=== PATIENT | female | born 1975 | race Caucasian/White ===

== ENCOUNTER 2021-11-07 10:53 | Emergency (ER) | payer BC, SELFPAY ==
--- NOTE | ~2021-11-07 | XR_ITS ---
XR hand LT min 3V DATE: 11/07/2021 11:10 INDICATION: Injury. Pain and bruising at third metacarpal TECHNIQUE: 3 views COMPARISON: None FINDINGS: No fracture or dislocation, periosteal reaction or bone destruction. IMPRESSION: Negative Reviewed, dictated and finalized at location A. IMPRESSION: Negative
--- NOTE | 2021-11-07 10:58 | ED.UPPEXIN ---
HPI - Extremity Injury (Upper) General Chief Complaint: Extremity Injury, Upper Stated Complaint: left hand injury Time Seen by Provider: 11/07/21 10:58 Source: patient and RN notes reviewed History of Present Illness HPI narrative: Patient is a 46-year-old female who presents the urgent care with complaints of left hand injury. Patient states that last Tuesday she was attempting to fix her lawnmower and something came back at her left hand . 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 Patient is right-hand dominant. Patient states that it is still bothering her with making a fist. No [id number] medication was taken for pain. No other acute complaints or injuries. No acute distress noted. Patient aware of the plan of care. Some parts of this dictation were generated by voice recognition software and may contain typographical and/or grammatical inaccuracies. Related Data Home Medications Medication Instructions Recorded Confirmed venlafaxine 37.5 mg PO DAILY 11/07/21 11/07/21 Allergies Allergy/AdvReac Type Severity Reaction Status Date / Time No Known Allergies Allergy Unverified 11/07/21 11:13 Review of Systems Review of Systems: CONSTITUTIONAL: Denies fever, chills, or sweats. EYES: Denies visual changes, redness, or discharge. ENT: Denies rhinorrhea, congestion, sore throat, or otalgia. CARDIOVASCULAR: Denies chest pain, palpitations, or edema. RESPIRATORY: Denies cough or dyspnea. GASTROINTESTINAL: Denies abdominal pain, nausea, vomiting, or diarrhea. GENITOURINARY: Denies dysuria or hematuria. SKIN: Denies rash or itching. MUSCULOSKELETAL: Reports of left hand pain and mild swelling NEUROLOGIC: Denies headache, numbness, or weakness. All other systems reviewed are negative, except as documented in HPI. PMFSH Comments At the time of my signature, I reviewed and agree with the nursing past medical, surgical, social, and family history. There is no relevant family history pertinent to the patient complaint. Exam Narrative: GENERAL: This is a well-nourished, well-developed patient, in no apparent distress. HEAD: normocephalic, atraumatic. EYES: PERRL. Sclera clear/white. Vision is grossly intact. EARS: External ears normal NOSE: External nose normal with no obvious nasal discharge, nares without redness, no rhinorrhea. THROAT: Mucous membranes moist NECK: Neck supple CARDIOVASCULAR: Regular rate and rhythm without murmurs, gallops, or rubs. RESPIRATORY: Clear to auscultation. Breath sounds equal bilaterally. No wheezes, rales, or rhonchi. SKIN: warm, intact with no suspicious lesions or rash, good texture and turgor. NEURO: awake, alert, and oriented to person, place and time. There were no obvious focal neurologic abnormalities. EXTREMITIES: Mild ecchymosis and edema noted over the third left metacarpal with increased tenderness. Range of motion to left upper extremity within normal limits. Exacerbated pain on making a fist of the left. Positive strong left radial pulse with capillary refill less than 2 seconds. Course Course Level of Care: Express Care Visit Vital Signs Vital signs: Vital Signs Temperature 98.7 F 11/07/21 11:00 Pulse Rate 101 H 11/07/21 11:00 Respiratory Rate 20 11/07/21 11:00 Blood Pressure 146/73 H 11/07/21 11:00 Pulse Oximetry 98 11/07/21 11:00 Temperature 98.7 F 11/07/21 11:00 Pulse Rate 101 H 11/07/21 11:00 Respiratory Rate 20 11/07/21 11:00 Blood Pressure 146/73 H 11/07/21 11:00 Pulse Oximetry 98 11/07/21 11:00 Reviewed-patient is informed that they may have pre-hypertension or hypertension based on a blood pressure reading in the department. I recommend the patient call the primary care provider listed on their discharge instructions or a physician of their choice this week to arrange follow-up for further evaluation of possible pre-hypertension or hypertension. MDM - Extremity Injury (Upper)
[2021-11-07 11:00] VITALS: BP 146/73; PULSE 101; RESP 20; TEMP 37.1; O2SAT 98
== END 2021-11-07 11:25 | disposition home or self-care (01) ==
PROVIDERS: Emergency Provider Nurse Practitioner Family; PCP Family Medicine
DX: S60.222A Contusion of left hand, initial encounter (principal); W22.8XXA Striking against or struck by other objects, initial encounter
CPT/HCPCS: 73130; 99203; G0463

== ENCOUNTER 2025-06-26 08:13 | Emergency (ER) | payer BC, SELFPAY ==
[2025-06-26 08:21] VITALS: BP 141/73; PULSE 87; RESP 16; TEMP 36.4; O2SAT 100
--- OUTSIDE RECORDS SUMMARY | 2025-06-26 08:26 | XMS_ITS | Clinical Summary ---
Author Organization [facility] [address] [facility] Address [address] [place] [address] Care Team Providers Care Ortho Nurse Name Role Phone Uri York MD Primary Care Provider [phone] Aj Mccrary MD Unavailable [phone] Allergies Active Allergy Reactions Criticality Noted Date Comments Codeine Vomiting Low 03/21/2017 Medications midodrine (PROAMATINE) 2.5 mg tabletIndicatio ns:Symptomatic Orthostatic Hypotension Take 1 tablet (2.5 mg total) by mouth daily 90 tablet 3 4 Active ezetimibe (ZETIA) 10 mg tablet Take 1 tablet (10 mg total) by mouth daily 90 tablet 4 5 11/01/19 26 Active venlafaxine XR (EFFEXOR-XR) 37.5 mg 24 hr capsuleIndicati ons:Major depressive disorder, recurrent, moderate (HCC) TAKE 1 CAPSULE(37 .5 MG) BY MOUTH DAILY 90 capsule 4 5 Active calcium carbonate-vitam in D3 2,500 mg (1,000 mg elemental)-800 unit tablet Take by mouth Active mv,Ca,min-FA-he rbal comp #223 400 mcg tablet Take by mouth Active rOPINIRole (REQUIP) 0.25 mg tablet TAKE 1 TABLET(0.2 5 MG) BY MOUTH EVERY NIGHT 30 tablet 5 5 Active armodafiniL (NUVIGIL) 250 mg tablet TAKE 1 TABLET(250 MG) BY MOUTH DAILY 30 tablet 5 5 Active armodafiniL (NUVIGIL) 250 mg tablet TAKE 1 TABLET(250 MG) BY MOUTH DAILY 30 tablet 5 5 06/25/20 25 Discontinued Active Problems Problem Noted Date Diagnosed Date Menopausal symptoms 03/28/2025 Assessment & Plan (03/28/2025 8:42 AM CDT): Experiencing weight gain, night sweats, and mood changes. Recommend black cohosh. Consider SSRIs like Prozac if symptoms persist. Vitamin D deficiency 10/31/2024 Assessment & Plan (10/31/2024 9:06 AM CDT): Continue supplement. BMI 28.0-28.9,adult 10/31/2024 Assessment & Plan (03/28/2025 8:42 AM CDT): Weight gain persists despite dietary changes and exercise, possibly related to smoking cessation and perimenopause. Continue monitoring weight. Encouragement provided. Keep up the great work with lifestyle changes! Assessment & Plan (10/31/2024 9:07 AM CDT): Continue excellent work with lifestyle changes! Mixed hyperlipidemia 07/02/2024 Assessment & Plan (03/28/2025 8:40 AM CDT): Started on ezetimibe with anticipated cholesterol improvement from dietary changes. Continue ezetimibe and monitor lipid profile. Assessment & Plan (10/31/2024 9:05 AM CDT): Mixed hyperlipidemia with previous statin intolerance. Cholesterol improved with lifestyle changes; further improvement desired. Ezetimibe considered for better tolerance. - Prescribe Ezetimibe (Zetia) for cholesterol management. - Recommend omega-3 fish oil supplementation. - Re-evaluate cholesterol levels in six months. Assessment & Plan (07/02/2024 10:00 AM GRINDER SET UP OPERATOR CENTERLESS): Reviewed atorvastatin along with scheduling and side effects. Will initiate. Will recheck lipid panel in 3-4 months on return visit. Reviewed lifestyle recommendations. Keep up the great work with the exercise! Prediabetes 07/02/2024 Assessment & Plan (03/28/2025 8:40 AM CDT): She continues dietary management with reduced red meat and increased fish intake. Continue dietary modifications. Assessment & Plan (10/31/2024 9:05 AM CDT): A1c 5.2%. Keep the great work with lifestyle changes! Assessment & Plan (07/02/2024 10:01 AM GRINDER SET UP OPERATOR CENTERLESS): Fasting glucose 109. Again reviewed lifestyle recommendations. Will check A1c upon return. Annual physical exam 03/26/2024 Assessment & Plan (03/28/2025 8:40 AM CDT): Visit preventive in nature. We reviewed medications, chronic conditions, risk factors, lifestyle recommendations. Reviewed immunization recommendations. Follow-up in 6 months for chronic conditions and 1 year for annual wellness. Assessment & Plan (03/26/2024 8:09 AM CDT): Visit preventive in nature. We reviewed medications, chronic conditions, risk factors, lifestyle recommendations. Reviewed immunization recommendations. Follow-up in 1 year for annual wellness. Screening mammogram for breast cancer 03/26/2024 Assessment & Plan (03/26/2024 8:09 AM CDT): Mammogram ordered. Will plan accordingly once results are received. Pure hypercholesterolemia 01/20/2023 Assessment & Plan (01/20/2023 10:27 AM CDT): 01/30 TC 242 TRG 135 HDL 33 LDL 182 Has increase in LDL in the past year. Patient reports she has been eating a lot of red meat, she purchased a house she and her have been eating red meat almost daily for the last year. Discussed dietary changes to improve cholesterol namely reducing red meat. Will repeat labs in 6 months. Physical exam, annual 01/20/2023 Assessment & Plan (01/20/2023 10:29 AM CDT): Preventive exam; reviewed recommended preventive screenings and vaccinations. Encourage annual flu vaccine. Wear sunscreen/protective clothing when outdoors. -cologuard ordered -repeat mammogram due 03/2023 -encouraged to follow up with [facility]FORMATION [facility]ELOPER. Encounter for colorectal cancer screening 2022 Assessment & Plan (01/20/2023 10:29 AM CDT): Discussed colorectal cancer screening guidelines. No family history of colon cancers. Declines screening with colonoscopy; aware that it is gold standard for CRC screening. Patient is agreeable to cologuard. Aware that kit will be mailed with directions and to call office if not received in 2 weeks. To call office if no results received within 2 weeks of test submission. Contusion of left hand 08/09/2022 Major depressive disorder, recurrent, mild 06/26 Assessment & Plan (03/26/2024 8:08 AM CDT): Reports well controlled on venlafaxine. Will continue. Will continue to monitor. Major depressive disorder, recurrent, moderate 1 08/27/2020 Assessment & Plan (01/20/2023 10:27 AM CDT): Stable; good response to venlafaxine 75 mg daily. No changes made today. Major depressive disorder, recurrent, unspecifie d 06/26/2021 S/P TLH 09/20/2019 Pelvic pain 08/20/2019 Overview (08/20/2019): Added automatically from request for surgery [id number] Menorrhagia with irregular cycle 08/20/2019 Overview (08/20/2019): Added automatically from request for surgery [id number] Tobacco dependence 09/27/2017 Assessment & Plan (07/02/2024 10:00 AM GRINDER SET UP OPERATOR CENTERLESS): Keep up the great work with cutting back! Sore throat 08/10/2017 Assessment & Plan (03/19/2025 9:23 AM CDT): Rapid strep negative. Recent exposure to strep within the household. Throat culture collected and sent to the lab. we will contact patient with results Patient advise to manage symptoms with pmze-mqx-pbvmhoi medications such as, Tylenol, ibuprofen, Zyrtec, Benadryl, and Flonase nasal spray Orders: POCT rapid strep A Throat culture Throat; Future Assessment & Plan (08/10/2017 4:59 PM GRINDER SET UP OPERATOR CENTERLESS): You may gargle with warm salt water, suck on throat lozenges, or throat sprays Use a decongestant for your congestion. You can dry up your runny nose with an antihistamine Elevate your pillow at night when you are sleeping to reduce the drainage down your throat. Please follow up with your PCP if you are not getting any better Other headache syndrome 07/20/2017 Assessment & Plan (08/10/2017 4:57 PM GRINDER SET UP OPERATOR CENTERLESS): Headaches are improving with treatment. Continue current treatment regimen.Headache is improving. Pt. Getting more sleep only using Trazodone occasionally now. Pt. Ok with not doing MRI since EVANS is improving. Will continue to monitor and notify me if EVANS increases with intensity or has neuro s/s Assessment & Plan (07/20/2017 11:28 AM GRINDER SET UP OPERATOR CENTERLESS): Headaches are newly identified. Advised to keep a headache diary. NSAIDs are mainstays of acute tension type Headaches. These are medications like Motrin, Ibuprofen, Aleve, Naproxen.and even Acetaminophen (tylenol). Being in a cool dark room may help your headache. If you experience nausea with your headache, you can take nausea medication if prescribed Stick with clear liquid until nausea subsides If you have been prescribed any medications, take as directed PREVENTION is very important-Avoid triggers, reduce stress. Get plenty of sleep, exercise and eat healthy. You can also try Relaxation, deep breathing and Imagery. If you experience a headache that is out of your normal, or have vision loss, dizziness- go to ER Chronic SHILOH (middle ear effusion) 10/22/2016 Overview (12/03/2016): Left otitis media with effusion Eczema 10/22/2016 Overview (12/03/2016): Dermatitis Tobacco use 10/22/2016 Overview (12/03/2016): Tobacco use Assessment & Plan (10/31/2024 9:05 AM CDT): Congratulated on quitting! Keep up the great work! Assessment & Plan (03/26/2024 8:08 AM CDT): Precontemplative. Encouraged complete smoking cessation. Discussed different types of medications & vbec-ftx-pasckia aides to help with cessation. Assessment & Plan (01/20/2023 10:27 AM CDT): Encourage complete cessation. Assessment & Plan (07/20/2017 1:15 PM GRINDER SET UP OPERATOR CENTERLESS): Quit Smoking https://smokefree.gov/ Nicotine replacement therapy (NRT) is the most commonly used family of quit smoking medications. NRT reduces withdrawal feelings by giving you a small controlled amount of nicotine?but none of the other dangerous chemicals found in cigarettes. This small amount of nicotine helps satisfy your craving for nicotine and reduces the urge to smoke. NRT can t do all the work. It can help with withdrawal and cravings. But it won t completely take away the urge to smoke. Even if you use NRT to help you stop smoking, quitting can still be hard. Combining NRT with other strategies can improve your chances of quitting and staying quit. To give yourself the best chance for success, explore other quit methods you can combine with medication. Also think about: Developing a quit plan. Using quit programs such as SmokefreeTXT or calling a quitline. Using the TutorVista.com atul for tips and inspiration to help you be smokefree. Prepare, Reduce creavings and Triggers, Reduce stress, Get Active, Eat Healthy Gum, Patches, Inhaler, lozenges, nasal spray or medications like Wellbutrin, Chantix Remind yourself of the rewards of quitting to help yourself stay on track: 20 minutes: heart rate, blood pressure drop 12 hours: carbon monoxide in blood stream drops to normal 2 weeks-3 months: circulation, lung function improve; heart attack risk begins to drop 1-9 months: cough less, breathe easier 1 year: risk of coronary heart disease cut in half 2-5 years: risk of cancer of mouth, throat, esophagus, bladder cut in half; stroke risk is reduced to that of a nonsmoker 10 years: half as likely to from lung cancer; risk of kidney or pancreatic cancer decreases 15 years: risk of coronary heart disease same as non-smoker s risk EXTRA MONEY Cough 03/26/2016 Overview (10/16/2016): Cough Shoulder joint painful on movement 04/06/2015 Overview (10/16/2016): Shoulder joint painful on movement Encounters Date Type Department Care Team Description 05/27/2025 Telephone [place] [facility] [address] [place] [phone] Kaci Serrano NP 05/15/2025 Results [facility] [address] [phone] Shirin Ulloa NP Screening Mammogram Bilateral W Romario 05/14/2025 8:53 AM GRINDER SET UP OPERATOR CENTERLESS - 05/14/2025 11:59 PM GRINDER SET UP OPERATOR CENTERLESS Hospital Encounter [facility] [address] [place] [address] Encounter for screening mammogram for malignant neoplasm of breast Discharge Disposition: Discharge to home or self care 04/25/2025 9:00 AM CDT Office Visit [facility] [address] [place] [address] Dayo Jones MD Hypersomnia (Primary Dx); Restless legs syndrome 03/28/2025 7:30 AM CDT Office Visit [facility] [address] [phone] Shirin Ulloa NP Annual physical exam (Primary Dx); Prediabetes; Mixed hyperlipidemia; BMI 28.0-28.9,adult; Encounter for screening mammogram for malignant neoplasm of breast; Menopausal symptoms from Last 3 Months Immunizations Immunization Administration Dates Next Due Hep B Vaccine 09/03/2013,09/03/2013 Influenza, Unspecified 03/26/2024(Deferr ed: Patient Refused),03/26/2024(Deferred: Patient Refused),03/11/2023(Deferred: Patient Refused),01/20/2023(Deferred: Patient Refused),02/01/2022(Deferred: Patient Refused),04/29/2021(Deferred: Patient Refused),03/11/2021(Deferred: Patient Refused),08/12/2020(Deferred: Patient Refused),03/11/2020(Deferred: Patient Refused),07/11/2019(Deferred: Patient Refused),04/16/2019(Deferred: Patient Refused),07/11/2018(Deferred: Patient Refused),04/10/2018(Deferred: Patient Refused),12/02/2017(Deferred: Patient Refused),07/12/2016(Deferred: Patient Refused) PPD TEST 09/03/2013,09/03/2013 TD Preservative Free 10/14/2011 Surgical History Surgery Date Site/Laterality Comments OTHER SURGICAL HISTORY endrometriosis: laparoscopy CARPAL TUNNEL RELEASE Carpal tunnel release OTHER SURGICAL HISTORY endrometriosis: laproscopy INTRAUTERINE DEVICE INSERTION 01/08/2017 - 02/07/2017 INTRAUTERINE DEVICE REMOVAL ABLATION TUBAL LIGATION SALPINGECTOMY 02/08/2019 - 03/10/2019 Left LAPAROSCOPIC ENDOMETRIOSIS FULGURATION 02/08/2019 - 03/10/2019 HYSTERECTOMY 09/09/2019 - 10/09/2019 BREAST BIOPSY 05/20/2022 Right Medical History Medical History Date Comments Hx Other Medical endrometriosis; Comments: PLD 03/19/2014 - Vasovagal syncopes Ovarian cyst Smoker Anxiety Hypersomnia Family History Medical History Relation Name Comments Diabetes Father's Brother Alexy Chaidez Hypertension Maternal Grandfather Wing Arthritis Maternal Grandmother Padmini Diabetes Maternal Grandmother Padmini Diabetes Other 1 Family history of Diabetes mellitus; Hypertension Other 2 Family history of Hypertension; Arthritis Other 3 Family history of Arthritis; Anesthesia problems Neg Hx Breast cancer Neg Hx Ovarian cancer Neg Hx Thyroid cancer Neg Hx Relation Name Status Comments Brother Alive Father Alive Father's Brother Alexy Chaidez Alive Maternal Grandfather Wing Alive Maternal Grandmother Padmini Alive Mother Alive Other 1 Other 2 Other 3 Sister Alive Social History Tobacco Use Types Packs/Day Years Used Date Smoking Tobacco: Heavy Smoker Cigarettes 0.8 31 Started: 07/11/1994 Smokeless Tobacco: Never Tobacco Cessation:Ready to Q uit: Not Asked; Counseling Given: Not Answered Comments:5-6 cigarettes/day Alcohol Use Standard Drinks/Week Comments Not Currently 0 (1 standard drink = 0.6 oz pur e alcohol) AUDIT-C Answer Date Recorded Q1: How often do you have a drink containing alc ohol? Monthly or less 03/17/2023 Q2: How many drinks containi ng alcohol do you have on a typical day when you are drinking? 1 or 2 03/17/2023 Q3: How often do you have si x or more drinks on one occasion? Never 03/17/2023 PHQ-2 Answer Date Recorded PHQ-2 Total Score (If total score is 3 or more points, staff should administer the PHQ-9) 0 03/28/2025 Comments No Sex and Gender Information Value Date Recorded Sex Assigned at Not on file Legal Sex Female 6:31 PM GRINDER SET UP OPERATOR CENTERLESS Gender Identity Female 04/07/2021 6:45 AM CDT Sexual Orientation Straight 04/07/2021 6: 45 AM CDT Obstetrics History Para Term AB IAB SAB Ectopic Multiple Livin g Live Births 2 2 2 2 2 Date Outcome GA Total Labor Labor/2nd/3rd Weight Sex Type Anes PTL [place] A1 A5 Name Clin Term Term Last Filed Vital Signs Vital Sign Reading Time Taken Comments Blood Pressure 119/79 04/25/2025 8:50 AM CDT Pulse 71 04/25/2025 8:50 AM CDT Temperature 36.2 C (97.2 F) 03/28/2025 7:36 AM CDT Respiratory Rate 20 03/28/2025 7:36 AM CDT Oxygen Saturation 98% 04/25/2025 8:50 AM CDT Inhaled Oxygen Concentration - - Weight 71.7 kg (158 lb) 05/14/2025 9:17 AM GRINDER SET UP OPERATOR CENTERLESS Height 160 cm (5' 3) 05/14/2025 9:17 AM GRINDER SET UP OPERATOR CENTERLESS Body Mass Index 27.99 05/14/2025 9:17 AM GRINDER SET UP OPERATOR CENTERLESS Plan of Treatment Health Maintenance Due Date Last Done Comments Hepatitis C Screening 1975 Pneumococcal vaccine <65 (1 of 2 - PCV) 1995 DTaP/Tdap/Td Vaccine (1 - Tdap) 10/15/2011 2 Influenza Vaccine (#1) 2025 Colon Cancer Screening-DNA Stool 02/09/2026 02/10/20 Depression Screening 03/28/2026 03/28/2025, 10/31/2024, 07/02/2024, Additional history exists Regular Well Visit/Exam 18-64 03/28/2026, 03/26/2024, 01/20/2023 Breast Cancer Screening-Mammogram 05/14/2026 05/14/2025, 05/10/2024, 04/02/2022, Additional history exists Hepatitis B Screening Completed 09/03/2013, 014 Procedures Procedure Name Priority Date/Time Associated Diagnosis Comments SCREENING MAMMOGRAM BILATERAL W ROMARIO Schedule Routine, Read Routine (OP Routine) 05/14/2025 9:20 AM GRINDER SET UP OPERATOR CENTERLESS Encounter for screening mammogram for malignant neoplasm of breast STOOL DNA COLOGUARD Routine 02/09/2023 2:55 PM CDT Encounter for colorectal cancer screening from Last 3 Months or Most Recently Relevant to Health Maintenance Results * Screening Mammogram Bilateral W Romario (05/14/2025 9:20 AM GRINDER SET UP OPERATOR CENTERLESS) Anatomical Region Laterality Modality Breast Bilateral Mammography Impressions 05/15/2025 10:11 AM GRINDER SET UP OPERATOR CENTERLESS Bilateral No evidence of malignancy in either breast. OVERALL BI-RADS FINAL ASSESSMENT: 2 - Benign RECOMMENDATION: Recommend bilateral annual screening mammography. If supplemental screening is desired for heterogeneously dense breast tissue, consider breast MRI every 1-2 years. If breast MRI cannot be performed, contrast-enhanced mammography is an alternative. Narrative 05/15/2025 10:11 AM GRINDER SET UP OPERATOR CENTERLESS EXAMINATION: Screening Mammogram Bilateral W Romario: 05/14/2025 COMPARISON: Relevant prior studies available at the time of interpretation were reviewed, including the most recent mammogram on: 05/10/2024. TECHNIQUE: Mammography was performed with 2D and 3D digital breast tomosynthesis (DBT) images. CAD was utilized. BREAST PARENCHYMAL COMPOSITION: The breasts are heterogeneously dense, which may obscure small masses. FINDINGS: Bilateral There is no suspicious mass, calcification, or architectural distortion in either breast. Shirinkoffi Ulloa NP IMG MAMMO PROCEDURES Final Result * Stool DNA - Cologuard (02/09/2023 2:55 PM CDT) Stool DNA - Cologuard Negative Negative Edgar (CLIA #:[id number]) Comment: NEGATIVE TEST RESULT. A negative Cologuard result indicates a low likelihood that a colorectal cancer (CRC) or advanced adenoma (adenomatous polyps with more advanced pre-malignant features) is present. The chance that a person with a negative Cologuard test has a colorectal cancer is less than 1 in 1500 (negative predictive value >99.9%) or has an advanced adenoma is less than 5.3% (negative predictive value 94.7%). These data are based on a prospective cross-sectional study of 10,000 individuals at average risk for colorectal cancer who were screened with both Cologuard and colonoscopy. (Simon Elliott et al, N Engl J Med 2014;370(14):2797-4795) The normal value (reference range) for this assay is negative. COLOGUARD RE-SCREENING RECOMMENDATION: Periodic colorectal cancer screening is an important part of preventive healthcare for asymptomatic individuals at average risk for colorectal cancer. Following a negative Cologuard result, the [place] [employer] and U.S. Multi-Society Task Force screening guidelines recommend a Cologuard re-screening interval of 3 years. References: [place] [employer] Guideline for Colorectal Cancer Screening: https://www.cancer.org/cancer/cdpuv-dfuaxm-kmiicz/vyfnmejed-bucppiivt-fyuuvgl/ac s-rec ommendations.html.; Aquiles HUFFMAN, Blayne CORTEZ, Jakob SandersK, Colorectal Cancer Screening: Recommendations for Physicians and Patients from the U.S. Multi-Society Task Force on Colorectal Cancer Screening , Am J Gastroenterology 2017; 112:6103-3619. TEST DESCRIPTION: Composite algorithmic analysis of stool DNA-biomarkers with hemoglobin immunoassay. Quantitative values of individual biomarkers are not reportable and are not associated with individual biomarker result reference ranges. Cologuard is intended for colorectal cancer screening of adults of either sex, 45 years or older, who are at average-risk for colorectal cancer (CRC). Cologuard has been approved for use by the U.S. FDA. The performance of Cologuard was established in a cross sectional study of average-risk adults aged 50-84. Cologuard performance in patients ages 45 to 49 years was estimated by sub-group analysis of near-age groups. Colonoscopies performed for a positive result may find as the most clinically significant lesion: colorectal cancer [4.0%], advanced adenoma (including sessile serrated polyps greater than or equal to 1cm diameter) [20%] or non- advanced adenoma [31%]; or no colorectal neoplasia [45%]. These estimates are derived from a prospective cross-sectional screening study of 10,000 individuals at average risk for colorectal cancer who were screened with both Cologuard and colonoscopy. (Simon Elliott et al, N Engl J Med 2014;370(14):1573-0180.) Cologuard may produce a false negative or false positive result (no colorectal cancer or precancerous polyp present at colonoscopy follow up). A negative Cologuard test result does not guarantee the absence of CRC or advanced adenoma (pre-cancer). The current Cologuard screening interval is every 3 years. ([place] [employer] and U.S. Multi-Society Task Force). Cologuard performance data in a 10,000 patient pivotal study using colonoscopy as the reference method can be accessed at the following location: www.Adyoulike.WISE s.r.l/results. Additional description of the Cologuard test process, warnings and precautions can be found at www.cologuard.com. Stool 02/09/2023 2:55 PM CDT 02/10/2023 7:52 PM CDT Verona Sorensen NP LAB BODY FLUIDS AND STOOLS ORDERABLES Final Result [facility] (CLIA #:[id number]) [place] [place] [address] from Last 3 Months or Most Recently Relevant to Health Maintenance [place] Advance Directives For more information, please contact: [phone] * Full Code (Latest Code Status on File) Date Activated Date Inactivated Comments 09/20/2019 3:46 PM 09/21/2019 6:57 PM Care Teams Ortho Nurse Relationship Specialty Start Date End Date Uri York MD [address] [place] [address] PCP - General 12/03/14 Aj Mccrary MD [address] [place] [address] Referring Physician Obstetrics and Gynecology 05/16/19
--- OUTSIDE RECORDS SUMMARY | 2025-06-26 08:26 | XMS_ITS | Encounter Summary ---
Author Organization [facility] Healthcare Address [address] [place] [address] Care Team Providers Care Presser First Name Role Phone Uri York MD Primary Care Provider [phone] Aj Mccrary MD Unavailable [phone] Encounter Details Date Type Department Care Team (Late st Contact Info) Description 05/03/2022 Telephone [facility] [address] [place] [id number] Joyce Davalos, TYLOR Social History Tobacco Use Types Packs/Day Years Used Date Smoking Tobacco: Heavy Smoker Cigarettes 0.8 31 Started: 1994 Smokeless Tobacco: Never Comments:5-6 cigarettes/day Alcohol Use Standard Drinks/Week Comments Not Currently 0 (1 standard drink = 0.6 oz pur e alcohol) PHQ-2 Answer Date Recorded PHQ-2 Total Score (If total score is 3 or more points, staff should administer the PHQ-9) 3 04/29/2021 Comments No Sex and Gender Information Value Date Recorded Sex Assigned at Not on file Legal Sex Female 6:31 PM RN BSN Gender Identity Female 04/07/2021 6:45 AM CDT Sexual Orientation Straight 04/07/2021 6: 45 AM CDT documented as of this encounter Plan of Treatment Not on file documented as of this encounter Visit Diagnoses Not on filedocumented in this encounter Additional Health Concerns Infection Onset Date Last Indicated Resolved Time COVID: Suspected 03/25/2025 03/25/2025 03/25/2025 8:51 AM CDT documented as of this encounter Care Teams Presser First Relationship Specialty Start Date End [place] [address] PCP - General 12/03/14 Aj Mccrary MD [address] [place] [address] Referring Physician Obstetrics and Gynecology 05/16/19 documented as of this encounter
--- OUTSIDE RECORDS SUMMARY | 2025-06-26 08:26 | XMS_ITS | Clinical Summary ---
Author Organization [employer] Address [address] Aguilera: Epic Prelude ADT [place] [address] Care Team Providers Care Paint Mixer Name Role Phone Unavailable Primary Care Provider Unavailabl e Social History Tobacco Use Types Packs/Day Years Used Date Smoking Tobacco: Never Assessed Comments Unknown Sex and Gender Information Value Date Recorded Sex Assigned at Not on file Legal Sex Female 5:39 AM DEPUTY K 9 Gender Identity Not on file Sexual Orientation Not on file Plan of Treatment Health Maintenance Due Date Last Done Comments DTAP/TDAP/TD VACCINES (1 - Tdap) 1995 HEPATITIS B VACCINES (1 of 3 - 19+ 3-dose series) 07/11 HPV/Cotest (21-29) 1997 CERVICAL CANCER SCREENING 2006 HPV/Cotest (30-65) 2006 PAP SMEAR 2006 BREAST CANCER SCREENING 2016 COLORECTAL SCREENING 2021 Colorectal Cancer Screening 2021 FIT-DNA Q 3 years 2021 FIT/FOBT Q 1 year 2021 Flex Sig/CT Colonography Q 5 years 2021 INFLUENZA VACCINE (#1) 2025
--- OUTSIDE RECORDS SUMMARY | 2025-06-26 08:26 | XMS_ITS | Encounter Summary ---
Author Organization [facility] Healthcare Address [address] [place] [address] Care Team Providers Care Nurses Medical Assistants Phlebotomists Name Role Phone Uri York MD Primary Care Provider [phone] Aj Mccrary MD Unavailable [phone] Encounter Details Date Type Department Care Team (Late st Contact Info) Description 05/15/2025 Results Follow-Up Family 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
--- OUTSIDE RECORDS SUMMARY | 2025-06-26 08:26 | XMS_ITS | Clinical Summary ---
Author Organization [facility] Address [address] [place] [address] Care Team Providers Care Industrial Chemist Name Role Phone Unavailable Primary Care Provider Unavailabl e Source Comments [facility],non-owned Affiliates and Associated Physician Practices is amultiple site organization consisting of ambulatory clinics and hospital sitesin [place], [place], [place] and [place]. This disclosure is being madepursuant to the Care Everywhere program and may not contain all information available regarding this patient. Last updated 18.[facility] Allergies No known active allergies Social History Tobacco Use Types Packs/Day Years Used Date Smoking Tobacco: Never Assessed Comments No Sex and Gender Information Value Date Recorded Sex Assigned at Not on file Legal Sex Female 6:03 AM PROMOTIONAL MODEL Gender Identity Not on file Sexual Orientation Not on file Last Filed Vital Signs Vital Sign Reading Time Taken Comments Blood Pressure 98/64 12/08/2010 9:40 AM CDT Pulse 75 12/08/2010 9:40 AM CDT Temperature 36.9 C (98.5 F) 12/08/2010 7:50 AM CDT Respiratory Rate 15 12/08/2010 9:40 AM CDT Oxygen Saturation 99% 12/08/2010 9:22 AM CDT Inhaled Oxygen Concentration - - Weight 48.1 kg (106 lb) 12/08/2010 7:47 AM CDT Height 160 cm (5' 3) 12/08/2010 7:47 AM CDT Body Mass Index 18.78 12/08/2010 7:47 AM CDT Plan of Treatment Health Maintenance Due Date Last Done Comments COLOGUARD (AGES 45-75) - COL ON CA SCREENING 1976 COLON MONITORING 1976 COLONOSCOPY - COLON CA SCREENING 1976 CT COLONOGRAPHY - COLON CA SCREENING 1976 Colorectal Cancer Screening 1976 FIT - COLON CA SCREENING 1976 FLEX SIG - COLON CA SCREENING 1976 LIPID TESTING 1976 MAMMOGRAM 1976 HIV SCREENING 1991 HEPATITIS C SCREENING 07/18/1994 DTAP/TDAP/TD VACCINES (1 - Tdap) 1995 HEPATITIS B VACCINE (1 of 3 - 19+ 3-dose series) 1995 DEPRESSION SCREENING 07/11/2024 COVID-19 VACCINE (1 - 2024-2 6 season) 2025 INFLUENZA VACCINE (#1) 2025 ZOSTER VACCINE (1 of 2) 2026 HIB VACCINE Aged Out No longer eligi ble based on patient's age to complete this topic HPV VACCINE Aged Out No longer eligi ble based on patient's age to complete this topic MENINGOCOCCAL (Group B) VACC INE SHARED DECISION-MAKING Aged Out No longer eligibl e based on patient's age to complete this topic MENINGOCOCCAL GROUPS A/C/Y/W VACCINE Aged Out No longer eligible b ased on patient's age to complete this topic PNEUMOCOCCAL VACCINE Aged Out No long er eligible based on patient's age to complete this topic
--- OUTSIDE RECORDS SUMMARY | 2025-06-26 08:26 | XMS_ITS | Encounter Summary ---
Author Organization [facility] Address [address] [place] [address] Care Team Providers Care Speech Language Pathologist Travel Name Role Phone Unavailable Primary Care Provider Unavailabl e Encounter Details Date Type Department Care Team (Late st Contact Info) Description 05/02/2008 Outpatient Historical HIS PATIENT IN A BED Ajay Pelayo MD [address] [place] [address] Social History Tobacco Use Types Packs/Day Years Used Date Smoking Tobacco: Never Assessed Comments Unknown Sex and Gender Information Value Date Recorded Sex Assigned at Not on file Legal Sex Female 5:39 AM ICING MIXER Gender Identity Not on file Sexual Orientation Not on file documented as of this encounter Plan of Treatment Not on file documented as of this encounter Procedures Procedure Name Priority Date/Time Associated Diagnosis Comments URINALYSIS WITH REFLEX CULTURE Stat 05/02/2008 7:36 PM CDT URINALYSIS W/REFLEX MICROSCOPIC Stat 05/02/2008 7:36 PM CDT documented in this encounter Results * URINALYSIS (05/02/2008 7:36 PM CDT) COLOR UA Yellow [facility] NITRITE UA Negative Negative [facility] UROBILINOGEN UA <1 <=1 mg/dL [facility] PH UA 6.0 5.0 - 8.0 [facility] KETONES UA Negative Negative [facility] CLARITY UA Clear Clear [facility] BILIRUBIN UA Negative Negative [facility] PROTEIN UA Negative Negative [facility] LEUKOCYTE ESTERASE UA Negative Negative [facility] SPECIFIC GRAVITY UA 1.010 1.001 - 1.035 [facility] GLUCOSE UA Negative Negative [facility] BLOOD UA Negative Negative [facility] 05/02/2008 7:36 PM CDT 05/02/2008 7:41 PM CDT Ajay Pelayo MD URINE ORDERABLES Final Result Performing Organization Address [facility] Phone Number INTERFACE SYSTEM Refer to clinic/hospital department [facility] CLIA# [id number] [address] [place] [address] * URINALYSIS WITH REFLEX CULTURE (05/02/2008 7:36 PM CDT) URINE CULTURE ORDER Not indicated [facility] Comment: Criteria for a reflex culture include one or more of the following: Abnormal nitrite, leukocyte esterase, WBCs or RBCs. Lack of qualifying criteria does not exclude the possiblity of a urinary tract infection. Dilute urine, drug interference, etc. may decrease the sensitivity of the criteria analytes. Urine specimen (specimen) 05/02/2008 7:36 PM CDT 05/02/2008 7:41 PM CDT Ajay Pelayo MD URINE ORDERABLES Final Result Performing Organization Address [facility] de Phone Number INTERFACE SYSTEM Refer to clinic/hospital department [facility] CLIA# [id number] [address] [place] [address] documented in this encounter Visit Diagnoses Not on filedocumented in this encounter
--- NOTE | 2025-06-26 08:51 | ED.LOWEXIN ---
HPI - Extremity Injury (Lower) General Chief Complaint: Extremity Injury, Lower Stated Complaint: L leg pain Time Seen by Provider: 06/26/25 08:37 Source: patient and RN notes reviewed Mode of arrival: ambulatory Limitations: no limitations History of Present Illness HPI Narrative: 49-year-old female patient presents today complaining of intermittent sharp pains to the left anterior thigh x1 week, worsening since onset. Denies injury or trauma, numbness or tingling, swelling, redness bruising. Pain initially started 2 days after she was having some low back pain, but the back pain has since resolved. Currently rates her pain 6/10, which increases with movement. She has tried some ibuprofen without relief. Related Data Home Medications ?Medication ?Instructions ?Recorded ?Confirmed ?Last Taken ?Type venlafaxine 37.5 mg 37.5 mg PO DAILY 11/07/21 11/07/21 Unknown History capsule,extended release 24 hr armodafinil 250 mg tablet mg PO 06/26/25 Unknown History atorvastatin 10 mg tablet mg 06/26/25 Unknown History ezetimibe 10 mg tablet mg 06/26/25 Unknown History ropinirole 0.25 mg tablet mg 06/26/25 Unknown History Allergies Allergy/AdvReac Type Severity Reaction Status Date / Time codeine AdvReac Mild Vomiting Verified 06/26/25 08:48 PMFSH Comments At time of signature, I have reviewed and agree with nursing past medical, surgical, social and family history unless otherwise noted. Please see nursing chart for further information. There is no relevant family history pertinent to the presenting complaint Exam Narrative: GENERAL: Well-appearing, well-nourished, and in moderate pain distress with movement HEAD: Normocephalic, atraumatic. EYES: EOMI. No redness or drainage. Conjunctivae normal. ENT: Mucous membranes pink and moist. NECK: Normal AROM. CHEST: No respiratory distress. MUSCULOSKELETAL: No bony or muscular tenderness of the thoracic or lumbar spine. EXTREMITIES: Left leg: Point tenderness to the left mid lateral thigh without appreciable edema. Remainder of the leg is nontender. Pain to this area with flexion of the hip and dorsiflexion of the ankle. Distal sensation intact. Saddle sensation intact. Capillary refill normal. 5/5 strength in BLE SKIN: Warm, dry, no rash. Capillary refill normal. Normal skin turgor. NEURO: No focal deficits. Alert and oriented x3. Gait steady. PSYCH: Normal affect. No signs of depression or anxiety. Course Course Level of Care: Express Care Visit Vital Signs Vital signs: Vital Signs Temperature 97.5 F L 06/26/25 08:21 Pulse Rate 87 06/26/25 08:21 Respiratory Rate 16 06/26/25 08:21 Blood Pressure 141/73 H 06/26/25 08:21 Pulse Oximetry 100 06/26/25 08:21 Temperature 97.5 F L 06/26/25 08:21 Pulse Rate 87 06/26/25 08:21 Respiratory Rate 16 06/26/25 08:21 Blood Pressure 141/73 H 06/26/25 08:21 Pulse Oximetry 100 06/26/25 08:21 Reviewed MDM MDM Narrative Medical decision making narrative: 49-year-old female patient presents today complaining of intermittent sharp pains to the left anterior thigh x1 week, worsening since onset. Denies injury or trauma, numbness or tingling, swelling, redness bruising. Pain initially started 2 days after she was having some low back pain, but the back pain has since resolved. Currently rates her pain 6/10, which increases with movement. She has tried some ibuprofen without relief. Upon exam, patient has point tenderness to the left mid lateral thigh without appreciable edema. Pain to this area with range of motion of the hip. Neurovascularly intact. No swelling, bruising, erythema. Patient grimaces intermittently with shooting pain, as well as with movement, consistent with some spasms in the muscle. Will treat with muscle relaxer and some prednisone. Patient agrees with plan and will follow-up with her PCP next week if symptoms persist. Vital signs stable. Anticipatory guidance and strict ED precautions given. Differential Diagnosis Differential Diagnosis: Muscle spasm, arthritis, lumbar radiculopathy Critical Care Time Critical Care Time Critical Care Time: No Discharge Plan Discharge Clinical Impression: Left thigh pain Patient Disposition: Home Condition: Stable Instructions: Antibiotic Form Additional Instructions: Please take the Flexeril and prednisone as directed. Do not drive within 8 hours of taking the Flexeril as it can make you drowsy. Follow-up with your PCP next week if symptoms are not improving. As discussed, please go to the ER immediately if you develop any worsening symptoms such as numbness or tingling in the leg, weakness, redness, bruising, swelling, shortness of breath or chest pain. Patient Language: Belarusian Prescriptions: New cyclobenzaprine 10 mg tablet 10 mg PO TID PRN (Reason: muscle spasm) Qty: 20 0RF prednisone 50 mg tablet 50 mg PO DAILY 5 Days Qty: 5 0RF No Action venlafaxine 37.5 mg capsule,extended release 24hr 37.5 mg PO DAILY atorvastatin 10 mg tablet ropinirole 0.25 mg tablet ezetimibe 10 mg tablet armodafinil 250 mg tablet PO Follow-up/Referrals: Harms,Uri Rubin M.D. [Primary Care Provider] Time of Disposition: 08:58
== END 2025-06-26 09:03 | disposition home or self-care (01) ==
PROVIDERS: Emergency Provider Nurse Practitioner; PCP Family Medicine
DX: M79.652 Pain in left thigh (principal)
CPT/HCPCS: 99213; G0463